=== PATIENT | male | born 1950 | race Caucasian/White ===

== ENCOUNTER 2017-04-26 18:17 | Emergency (ER) | payer MEDICARE, OTHER ==
[~2017-04-26] VITALS: Ht 170.2 cm; Wt 114.0 kg
[~2017-04-26 18:17] MED LIST: Z.0.UNKNOWN
[2017-04-26 18:36] VITALS: BP 277/152; PULSE 107; RESP 16; TEMP 98.5; O2SAT 97
[2017-04-26 19:21] VITALS: BP 231/139; PULSE 89; RESP 18; TEMP 97.9; O2SAT 95
[2017-04-26] MEDS ORDERED: ASPIRIN 81 MG CHEW TAB PO ONE (19:30)
[2017-04-26] MEDS ORDERED: LABETALOL HCL 100 MG/20 ML VIAL IV PUSH ONE (19:30)
[2017-04-26] MEDS ORDERED: SODIUM CHLORIDE 0.9% FLUSH 10 ML FLUSH IVF PRN (19:30)
[2017-04-26 19:33] VITALS: RESP 18; O2SAT 95
--- NOTE | 2017-04-26 19:34 | PD ---
HPI Chief Complaint: Hypertension Time Seen by Provider: 19:10 Travel History International Travel<30 days: No Contact w/Intl Traveler<30days: No Traveled to known affect area: No History of Present Illness HPI The patient is a 66-year-old male who presents to the emergency department for one month of chest congestion, cough, and intermittent chest pain. The patient states he's had a productive cough producing white sputum for one month, chest congestion, and intermittent chest pain secondary to coughing. He denies any shortness of breath, however, does note intermittent headaches. The patient does have a history of hypertension and states he has not taken his medications for several years, states that one of the medications was affected his kidney. He is followed by his primary physician, Dr. Vega, and states he saw his physician 2 months ago. He denies any exertional symptoms , does note chronic lower extremity edema. He denies any nausea, vomiting, or abdominal pain. He quit smoking 10 years ago. Symptoms are moderate and there are no current alleviating or exacerbating factors. PFSH Past Medical History Arthritis: Yes Cardiovascular Problems: Yes (htn not taking any meds) High Cholesterol: Yes Cerebrovascular Accident: Yes (tia's) Diabetes: Yes (type 2) Diminished Hearing: No Hypertension: Yes Respiratory: Yes (asthma) Social History Alcohol Use: Yes (OCCASIONALLY) Tobacco Use: No Substance Use: No Allergies-Medications (Allergen,Severity, Reaction): Coded Allergies: No Known Allergies (Verified Adverse Reaction, Unknown, 04/26/17) Reported Meds & Prescriptions Reported Meds & Active Scripts Active Reported Unknown Meds (Miscellaneous Medication) Misc Review of Systems Except as stated in HPI: all other systems reviewed are Neg General / Constitutional: No: Fever HENT: Positive: Headaches, No: Lightheadedness Cardiovascular: Positive: Chest Pain or Discomfort (secondary to coughing) Respiratory: Positive: Cough, No: Shortness of Breath Gastrointestinal: No: Nausea, Vomiting, Abdominal Pain Musculoskeletal: Positive: Edema Neurologic: No: Dizziness Physical Exam Narrative GENERAL: Awake, alert, nontoxic-appearing 66-year-old male who appears his stated age and is in no acute respiratory distress. SKIN: Focused skin assessment warm/dry. HEAD: Atraumatic. Normocephalic. EYES: Pupils equal and round. Pupils are 3 mm bilateral and reactive. EOMs are intact. Patient is able to see fingers at a distance of 2 feet without difficulty. ENT: No nasal bleeding or discharge. Mucous membranes pink and moist. NECK: Trachea midline. No JVD. CARDIOVASCULAR: Regular rate and rhythm. No murmur appreciated. RESPIRATORY: No accessory muscle use. Clear to auscultation. Breath sounds equal bilaterally. GASTROINTESTINAL: Abdomen soft, non-tender, nondistended. Obese, no rebound tenderness. MUSCULOSKELETAL: No obvious deformities. No clubbing. No cyanosis. Mild lower extremity pitting edema. Neuro: Awake and alert. Nonfocal on exam. Cranial nerves II through XII are grossly intact. Oriented 4. PSYCHIATRIC: Appropriate mood and affect; insight and judgment normal. Data Data Last Documented VS Vital Signs Date Time Temp Pulse Resp B/P (MAP) Pulse Ox O2 Delivery O2 Flow Rate FiO2 04/26/17 20:35 73 16 196/109 (138) 96 Room Air 04/26/17 19:21 97.9 Orders Orders Electrocardiogram (04/26/17 19:29) B-Type Natriuretic Peptide (04/26/17 19:29) Ckmb (Isoenzyme) Profile (04/26/17 19:29) Complete Blood Count With Diff (04/26/17 19:29) Comprehensive Metabolic Panel (04/26/17 19:29) Magnesium (Mg) (04/26/17 19:29) Prothrombin Time / Inr (Pt) (04/26/17 19:29) Act Partial Throm Time (Ptt) (04/26/17 19:29) Troponin I (04/26/17 19:29) Chest, Single Ap (04/26/17 19:29) Ecg Monitoring (04/26/17 19:29) Bilateral Bp Monitoring (04/26/17 19:29) Iv Access Insert/Monitor (04/26/17 19:29) Oximetry (04/26/17 19:29) Oxygen Administration (04/26/17 19:29) Aspirin Chew (Aspirin Chew) (04/26/17 19:30) Sodium Chloride 0.9% Flush (Ns Flush) (04/26/17 19:30) Labetalol Inj (Trandate Inj) (04/26/17 19:30) Amlodipine (Norvasc) (04/26/17 20:30) Labs Laboratory Tests Test 04/26/17 19:51 White Blood Count 6.5 TH/MM3 Red Blood Count 5.15 MIL/MM3 Hemoglobin 13.8 GM/DL Hematocrit 42.2 % Mean Corpuscular Volume 81.9 FL Mean Corpuscular Hemoglobin 26.8 PG Mean Corpuscular Hemoglobin Concent 32.7 % Red Cell Distribution Width 14.1 % Platelet Count 178 TH/MM3 Mean Platelet Volume 7.7 FL Neutrophils (%) (Auto) 66.2 % Lymphocytes (%) (Auto) 19.7 % Monocytes (%) (Auto) 9.6 % Eosinophils (%) (Auto) 4.0 % Basophils (%) (Auto) 0.5 % Neutrophils # (Auto) 4.3 TH/MM3 Lymphocytes # (Auto) 1.3 TH/MM3 Monocytes # (Auto) 0.6 TH/MM3 Eosinophils # (Auto) 0.3 TH/MM3 Basophils # (Auto) 0.0 TH/MM3 CBC Comment DIFF FINAL Differential Comment Prothrombin Time 10.3 SEC Prothromb Time International Ratio 1.0 RATIO Activated Partial Thromboplast Time 24.4 SEC Blood Urea Nitrogen 24 MG/DL Creatinine 1.60 MG/DL Random Glucose 115 MG/DL Total Protein 7.5 GM/DL Albumin 3.5 GM/DL Calcium Level 8.4 MG/DL Magnesium Level 2.4 MG/DL Alkaline Phosphatase 78 U/L Aspartate Amino Transf (AST/SGOT) 22 U/L Alanine Aminotransferase (ALT/SGPT) 24 U/L Total Bilirubin 0.5 MG/DL Sodium Level 143 MEQ/L Potassium Level 3.3 MEQ/L Chloride Level 106 MEQ/L Carbon Dioxide Level 32.7 MEQ/L Anion Gap 4 MEQ/L Estimat Glomerular Filtration Rate 43 ML/MIN Total Creatine Kinase 59 U/L Troponin I 0.04 NG/ML B-Type Natriuretic Peptide 155 PG/ML [facility] Medical Decision Making Medical Screen Exam Complete: Yes Emergency Medical Condition: Yes Medical Record Reviewed: Yes Interpretation(s) EKG reveals normal sinus rhythm with a rate 89. Left ventricular hypertrophy. Nonspecific ST changes. Laboratory Tests Test 04/26/17 19:51 White Blood Count 6.5 TH/MM3 Red Blood Count 5.15 MIL/MM3 Hemoglobin 13.8 GM/DL Hematocrit 42.2 % Mean Corpuscular Volume 81.9 FL Mean Corpuscular Hemoglobin 26.8 PG Mean Corpuscular Hemoglobin Concent 32.7 % Red Cell Distribution Width 14.1 % Platelet Count 178 TH/MM3 Mean Platelet Volume 7.7 FL Neutrophils (%) (Auto) 66.2 % Lymphocytes (%) (Auto) 19.7 % Monocytes (%) (Auto) 9.6 % Eosinophils (%) (Auto) 4.0 % Basophils (%) (Auto) 0.5 % Neutrophils # (Auto) 4.3 TH/MM3 Lymphocytes # (Auto) 1.3 TH/MM3 Monocytes # (Auto) 0.6 TH/MM3 Eosinophils # (Auto) 0.3 TH/MM3 Basophils # (Auto) 0.0 TH/MM3 CBC Comment DIFF FINAL Differential Comment Prothrombin Time 10.3 SEC Prothromb Time International Ratio 1.0 RATIO Activated Partial Thromboplast Time 24.4 SEC Blood Urea Nitrogen 24 MG/DL Creatinine 1.60 MG/DL Random Glucose 115 MG/DL Total Protein 7.5 GM/DL Albumin 3.5 GM/DL Calcium Level 8.4 MG/DL Magnesium Level 2.4 MG/DL Alkaline Phosphatase 78 U/L Aspartate Amino Transf (AST/SGOT) 22 U/L Alanine Aminotransferase (ALT/SGPT) 24 U/L Total Bilirubin 0.5 MG/DL Sodium Level 143 MEQ/L Potassium Level 3.3 MEQ/L Chloride Level 106 MEQ/L Carbon Dioxide Level 32.7 MEQ/L Anion Gap 4 MEQ/L Estimat Glomerular Filtration Rate 43 ML/MIN Total Creatine Kinase 59 U/L Troponin I 0.04 NG/ML B-Type Natriuretic Peptide 155 PG/ML Differential Diagnosis Differential diagnosis includes hypertensive urgency, hypertensive emergency, hypertension, acute kidney injury, acute coronary syndrome, pneumonia, congestive heart failure, cardiomyopathy. Narrative Course IV was established, labs are drawn and sent, and the patient was placed on cardiac telemetry monitoring and continuous pulse oximetry monitoring. EKG was ordered and interpreted. Chest x-ray was obtained. The patient was administered labetalol 20 mg intravenously. Troponin was 0.04. BNP is 155. Creatinine is elevated at 1.6. Patient's blood pressure came down to a systolic in the 190s and diastolic in the 100, a 25% decrease in blood pressure or slightly higher. The patient was nonfocal on exam. X-ray was clear, no evidence of pulmonary edema. It appears the patient has hypertensive urgency. He is advised to take medications as prescribed. I will place the patient on Norvasc once a day, metoprolol twice a day and advised the patient did take a baby aspirin. He is advised to check his blood pressure daily, keep a log, and follow-up with his primary physician. Return if symptoms worsen or progress. Diagnosis Primary Impression: Hypertensive urgency Patient Instructions: General Instructions Additional Instructions: Please provide the patient a copy of his lab results and x-ray results at discharge. Medications as directed. Take a baby aspirin daily. Follow-up with your primary physician. Keep a blood pressure log. Return if symptoms worsen or progress. Med/Other Pt SpecificInfo: Prescription(s) given Scripts Metoprolol Tartrate (Metoprolol Tartrate) 25 Mg Tab 25 MG PO BID, #60 TAB 1 Refill Prov: Marc Siddiqi MD 04/26/17 Amlodipine (Norvasc) 10 Mg Tab 10 MG PO DAILY for Blood Pressure Management, #30 TAB 1 Refill Prov: Marc Siddiqi MD 04/26/17 Disposition: DISCHARGE HOME Condition: Stable Marc Siddiqi MD Apr 26, 2017 19:34
[2017-04-26 19:57] VITALS: BP_SYST 241; BP_SYST 257; BP_DIAS 140; BP_DIAS 153
--- NOTE | 2017-04-26 19:58 | RADRPT ---
EXAM DATE/TIME: 04/26/2017 19:32 [facility] COMPARISON: No previous studies available for comparison. INDICATIONS : Flu like symptoms and shortness of breath. MEDICAL HISTORY : Hypercholesterolemia. Hypertension Asthma. SURGICAL HISTORY : Cardiac stent. ENCOUNTER: Initial ACUITY: 2 days PAIN SCORE: 2/10 LOCATION: Bilateral chest FINDINGS: The lungs are clear without infiltrate, nodule, or mass. There is no appreciable pleural effusion fo r technique. Heart and mediastinum are unremarkable. CONCLUSION: No acute cardiopulmonary disease. George Reyes MD on April 26, 2017 at 19:55 Board Certified Radiologist. This report was verified electronically.
[2017-04-26 20:00] LABS: AUTOMATED NEUTROPHIL # 4.3 TH/MM3 (1.8-7.7); BASOPHIL % 0.5 % (0.0-2.0); EOSINOPHIL # 0.3 TH/MM3 (0-0.4); HEMATOCRIT 42.2 % (39.0-51.0); HEMOGLOBIN 13.8 GM/DL (13.0-17.0); LYMPH % 19.7 % (9.0-44.0); LYMPHOCYTE # 1.3 TH/MM3 (1.0-4.8); MEAN CELL VOLUME 81.9 FL (80.0-100.0); MEAN CORPUSCULAR HEMOGLOBIN 26.8 PG (27.0-34.0); MEAN CORPUSCULAR HGB CONC 32.7 % (32.0-36.0); MEAN PLATELET VOLUME 7.7 FL (7.0-11.0); MONO % 9.6 % (0.0-8.0); MONOCYTE # 0.6 TH/MM3 (0-0.9); NEUT % 66.2 % (16.0-70.0); PLATELET COUNT 178 TH/MM3 (150-450); RED BLOOD COUNT 5.15 MIL/MM3 (4.50-5.90); RED CELL DISTRIBUTION WIDTH 14.1 % (11.6-17.2); WHITE BLOOD COUNT 6.5 TH/MM3 (4.0-11.0)
[2017-04-26 20:07] LABS: CHLORIDE 106 MEQ/L (98-107); SODIUM (NA) 143 MEQ/L (136-145)
[2017-04-26 20:10] LABS: ALBUMIN 3.5 GM/DL (3.4-5.0); BICARBONATE 32.7 MEQ/L (21.0-32.0); BLOOD UREA NITROGEN 24 MG/DL (7-18); CALCIUM 8.4 MG/DL (8.5-10.1); GLUCOSE,RANDOM 115 MG/DL (74-106); MAGNESIUM 2.4 MG/DL (1.5-2.5)
[2017-04-26 20:12] LABS: PROTHROMBIN TIME - PATIENT 10.3 SEC (9.8-11.6)
[2017-04-26 20:13] LABS: ALT (GPT) 24 U/L (12-78); AST (GOT) 22 U/L (15-37); GLOMERULAR FILTRATION RATE 43 ML/MIN (>89)
[2017-04-26 20:15] LABS: TOTAL BILIRUBIN ADULT 0.5 MG/DL (0.2-1.0); TOTAL PROTEIN 7.5 GM/DL (6.4-8.2)
[2017-04-26 20:16] LABS: ALKALINE PHOSPHATASE 78 U/L (45-117)
[2017-04-26 20:18] LABS: TROPONIN I 0.04 NG/ML (0.02-0.05)
[2017-04-26 20:35] VITALS: BP 196/109; PULSE 73; RESP 16; O2SAT 96
[2017-04-26] MEDS ORDERED: METO25TA3 PO (20:56)
[2017-04-26] MEDS ORDERED: AMLO10 PO (20:56)
[2017-04-26 21:25] VITALS: BP 199/110
--- NOTE | 2017-04-27 12:52 | EKG ---
Date Performed: 04/26/2017 Time Performed: 19:44:51 PTAGE: 66 years EKG: Sinus rhythm LEFT VENTRICULAR HYPERTROPHY AND ST-T CHANGE ABNORMAL ECG NO PREVIOUS TRACING DOCTOR: Choco Chun Interpretating Date/Time 04/27/2017 12:50:47
== END 2017-04-26 21:28 | disposition home or self-care (01) ==
LOC: PHED 18:17
DX: I16.0 Hypertensive urgency (principal); I51.7 Cardiomegaly; R05 Cough; R94.31 Abnormal electrocardiogram [ECG] [EKG]; M19.90 Unspecified osteoarthritis, unspecified site; E78.00 Pure hypercholesterolemia, unspecified; E11.9 Type 2 diabetes mellitus without complications; J45.909 Unspecified asthma, uncomplicated; Z86.73 Personal history of transient ischemic attack (TIA), and cerebral infarction without residual deficits
CPT/HCPCS: 71045; 80053; 82550; 83735; 83880; 84484; 85025; 85610; 85730; 93005; 96374